=== PATIENT | female | born 1990 ===

== ENCOUNTER 2017-05-04 14:44 | Emergency (ER) | payer OTHER ==
--- NOTE | 2017-05-04 15:21 | ED PDOC ---
HPI: General Adult Time Seen by Provider: 05/04/17 15:08 Chief Complaint (Nursing): Palpitations Chief Complaint (Provider): palpitations History Per: Patient History/Exam Limitations: no limitations Onset/Duration Of Symptoms: Days (x 2) Additional Complaint(s): Doris Mason is a 26 year old female, with a previous medical history of drug abuse, who presents to the ED with complaints of chest palpitations associated with vomiting ongoing for 2 days. Patient denies any chest pain, shortness of breath, fever, diarrhea or abdominal pain. She reports starting methadone 2 days ago. Patient is also requesting a test because she is unsure whether she is or not. 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 Negative for: Chest Pain Respiratory: Negative for: Shortness of Breath Gastrointestinal: Positive for: Nausea, Vomiting. Negative for: Abdominal Pain , Diarrhea Physical Exam - Reviewed Nursing Documentation Reviewed: Yes Vital Signs Reviewed: Yes - Physical Exam Appears: Positive for: Well, Non-toxic, No Acute Distress Skin: Positive for: Normal Color, Warm, Dry ENT: Positive for: Other (dry mucous membranes) Cardiovascular/Chest: Positive for: Regular Rate, Rhythm Respiratory: Positive for: CNT, Normal Breath Sounds Gastrointestinal/Abdominal: Positive for: Normal Exam, Bowel Sounds, Soft. Negative for: Tenderness Neurologic/Psych: Positive for: Alert, Oriented - Laboratory Results Result Diagrams: 05/04/17 15:35 05/04/17 15:35 - ECG ECG Rhythm: Positive for: Sinus Rhythm O2 Sat by Pulse Oximetry: 94 (RA) Pulse Ox Interpretation: Abnormal Medical Decision Making Medical Decision Making: Initial Plan: * Zofran 4 mg IV * labs * Troponin I * beta-HCG * reevaluation Time: 1700 -pt feels better bloodwork and Ekg normal pt sleeping in bed comfortably on reeval pt instructed on outpt follow up Scribe Attestation: Documented by Sofya Dillon, acting as a scribe for Kiara Stratton MD. Provider Scribe Attestation: All medical record entries made by the Scribe were at my direction and personally dictated by me. I have reviewed the chart and agree that the record accurately reflects my personal performance of the history, physical exam, medical decision making, and the department course for this patient. I have also personally directed, reviewed, and agree with the discharge instructions and disposition. Disposition - Clinical Impression Clinical Impression: Palpitations - Patient ED Disposition Is Patient to be Admitted: No Counseled Patient/Family Regarding: Studies Performed, Diagnosis, Need For Followup - Disposition Referrals: [facility] [Outside] [facility] [Outside] Bhupendra Lua MD [Staff Provider] - Disposition: Routine/Home Disposition Time: 16:35 Condition: IMPROVED Additional Instructions: follow up with your primary doctor in 1-2 days return to the ED with any worsening or concerning symptoms Instructions: Palpitations (ED) Forms: [place] ([place])
[2017-05-04 15:52] LABS: BASO # 0.1 K/uL (0.0-0.2); BASO % 1.1 % (0.0-2.0); EOS # 0.5 K/uL (0.0-0.7); EOS % 7.1 % (0.0-4.0); HEMATOCRIT 43.6 % (34.0-47.0); LYMPH # 2.7 K/uL (1.0-4.3); MEAN CELL VOLUME 96.2 fl (81.0-99.0); MEAN CORPUSCULAR HEMOGLOBIN 31.7 pg (27.0-31.0); MEAN CORPUSCULAR HGB CONC 32.9 g/dL (33.0-37.0); MEAN PLATELET VOLUME 8.6 fl (7.2-11.7); MONO # 0.7 K/uL (0.0-0.8); MONO % 10.3 % (0.0-10.0); NEUT # 2.6 K/uL (1.8-7.0); NEUT % 40.5 % (50.0-75.0); NRBC % 0.1 % (0.0-0.0); RED CELL DISTRIBUTION WIDTH 12.3 % (11.5-14.5); WHITE BLOOD COUNT 6.5 K/uL (4.8-10.8)
[2017-05-04 16:08] LABS: ALB/GLOB RATIO 1.3 (1.0-2.1); ALKALINE PHOSPHATASE 86 U/L (38-126); ALT/SGPT 30 U/L (9-52); AST/SGOT 29 U/L (14-36); BILIRUBIN,TOTAL 0.4 mg/dl (0.2-1.3); BLOOD UREA NITROGEN 7 mg/dl (7-17); CARBON DIOXIDE 31 mmol/L (22-30); CHLORIDE 98 mmol/L (98-107); GFR AFRICAN-AMERICAN > 60; GLUCOSE,RANDOM 88 mg/dL (65-105); SODIUM 139 mmol/l (132-148); TOTAL PROTEIN 7.6 G/DL (6.3-8.2)
[2017-05-04] MEDS ORDERED: Sodium Chloride 0.9% 1,000 ML IV STA (16:24)
[2017-05-04 17:12] VITALS: RESP 18; TEMP 98.3
[2017-05-04 17:16] VITALS: BP 117/63; PULSE 72
[2017-05-05 17:13] VITALS: O2SAT 94
== END 2017-05-04 17:45 | disposition home or self-care (01) ==
LOC: H.ER 14:44
DX: R00.2 Palpitations (principal)
CPT/HCPCS: 80053; 81025; 84484; 84702; 85025; 99284; J7040